=== PATIENT | female | born 1955 | race Caucasian/White ===

== ENCOUNTER → 2017-02-19 | Day surgery (SDC) | payer BC ==
--- NOTE | 2017-02-17 16:04 | MH ---
cc: Antione ALFORD M.D. DATE OF ADMISSION: 02/19/2017 REASON FOR ADMISSION Rotator cuff tear right shoulder, now being admitted for rotator cuff repair. HISTORY OF PRESENT ILLNESS This pleasant 61-year-old female is being admitted today for rotator cuff repair right shoulder due to torn rotator cuff she did 8 months ago. OTHER PAST HISTORY The patient has a history of: 1. Problems with both shoulders. 2. Hypertension. 3. Kidney stones in the past. CURRENT MEDICATIONS 1. Enalapril. 2. Amlodipine. 3. Crestor. 4. Omeprazole. 5. Evista. 6. Voltaren, stopped before surgery. PREVIOUS SURGERIES 1. Laminectomy of the lumbar spine. 2. Cholecystectomy. 3. Appendectomy. 4. Hysterectomy. REVIEW OF SYSTEMS Noncontributory. FAMILY HISTORY Noncontributory. SOCIAL HISTORY She does not smoke or drink. ALLERGIES MORPHINE. PHYSICAL EXAMINATION GENERAL: We find a 61-year-old female, well-developed, well-nourished, alert and oriented x3, complains of pain in the right shoulder. VITAL SIGNS: Blood pressure 122/80, pulse 80 and regular, respirations 18, temperature 98.3, pulse oximetry 95% on room air. HEENT: Eyes PERRLA, EOMI. Ears, nose, mouth clear. NECK: Supple. LUNGS: Clear. HEART: Regular rate. ABDOMEN: Soft. Positive bowel sounds and nontender. EXTREMITIES: Reveals the right shoulder to only have 45 degrees of active flexion and abduction. She is neurovascularly intact to her fingers. IMAGING STUDIES MRI report of right shoulder from [facility] reveals a complete tear of the supraspinatus portion of the rotator cuff. IMPRESSION AT THIS TIME Rotator cuff tear, right shoulder. PLAN Admission for rotator cuff repair right shoulder today. The patient given a prescription for postoperative pain control in the office, understands the use of Hibiclens scrub and Bactroban preoperatively. J. MD BLESSING Nielson/JEFFYL /9:26 AM /4:04 PM
[~2017-02-19] VITALS: Ht 157.5 cm; Wt 77.0 kg
[~2017-02-19] MED LIST: ACETAMINOPHEN 1000 MG/100 ML 100 ML IV ONE; AMLO2.5T PO; BUPIVACAINE HCL PF 0.5% 30 ML VIAL ONE; CHLORHEXIDINE GLUCONATE 2 % 1 PACK (2 CLOTHS) TOPICAL PRN; CHLORHEXIDINE GLUCONATE 4% SOLN 120 ML BTL TOPICAL SCH; ENAL20TA PO; INSULIN HUMAN REGULAR 1,000 UNITS/10 ML VIAL SQ PRN; LACTATED RINGER'S 1000 ML IV PRN; METOPROLOL TARTRATE 25 MG TAB PO PRN; MIDAZOLAM HCL 2 MG/2 ML VIAL ONE; MIDAZOLAM HCL 5 MG/ML VIAL (1 ML) ONE; OMEP20TA93 PO; POVIDONE IODINE 5% (ANTISEPSIS KIT) 4 APPLICATIONS EACH NARE PRN; PROMETHAZINE INJ 25 MG/ML VIAL ONE; RALO60 PO; RESP: ALBUTEROL 2.5 MG/3 ML NEB (PRN) ONE; ROSU5 PO; SODIUM CHLORID 0.9% 500 ML IV PRN; VANCOMYCIN 1000 MG/NS 250 ML (for <70 kg) IV SCH; ceFAZolin 2 GM PREMIX 50 ML IV SCH
--- NOTE | 2017-02-19 12:18 | EKG ---
Date Performed: 02/19/2017 Time Performed: 07:07:52 PTAGE: 61 years EKG: Sinus rhythm INFERIOR MYOCARDIAL INFARCTION Nonspecific ST changes are present Compared to prior tracing no signi ficant change ABNORMAL ECG PREVIOUS TRACING : 09/09/2012 14.53 DOCTOR: Sim Flores Interpretating Date/Time 02/19/2017 12:17:33
[2017-02-19 12:55] VITALS: BP 106/59; PULSE 95; RESP 18; TEMP 98.6; O2SAT 93
--- NOTE | 2017-02-19 22:40 | MP ---
cc: Antione BROWN DATE OF SURGERY 02/19/17 PREOPERATIVE DIAGNOSIS Torn rotator cuff right shoulder. POSTOPERATIVE DIAGNOSIS Torn rotator cuff right shoulder. PROCEDURE PERFORMED Right rotator cuff repair using two 5.5 Parcus anchors and FiberWire and acromioplasty, right shoulder. SURGEON Dr. Yaz Brown CAREER MANAGER , IT ARCHITECTURE CONSULTANT ANESTHESIA General intubation and block PROCEDURE IN DETAIL The patient brought to the operating room where after successful induction of anesthesia, the patient was placed on the operating room table in beach chair position. Right shoulder and arm were prepped and draped usual manner. An anterior incision was then made just lateral to the deltopectoral groove along the lines of the head of the humerus and proximal humerus 3 inches in length, carried down through subcutaneous tissue through a deltoid splitting incision to expose the bursa over the rotator cuff which was removed. The rotator cuff was found to have a large tear through the supraspinatus with retraction. This area was debrided and repaired using two 5.5 Parkus anchors which were screwed into the bone and after punching holes with their punch first. Using the attached FiberWire, the rotator cuff was repaired and extra suture from the remains of the suture was used to supplement the repair. The acromion was found to be impinging the rotator cuff and acromioplasty performed using curved osteotome to remove the undersurface one third of acromion which was then smoothed with a rasp. Full range of motion was then appreciated with no impingement. The wound irrigated copiously with lactated Ringer's solution. Meticulous hemostasis achieved. Deltoid loosely approximated with running 0 Vicryl suture. Subcutaneous tissue approximated using interrupted running 2-0 and 3-0 Monocryl suture. Steri-Strips, sterile dressing and sling and swath. Estimated blood loss was 50 mL. Sponge and suture count correct. No drain utilized. The patient tolerated the procedure well and left the operating room in satisfactory condition. MD BLESSING Ordonez/ /10:19 AM /10:37 PM
== END | disposition home or self-care (01) ==
LOC: PHSDC 06:07
PROVIDERS: ATTEND Surgery
DX: M75.101 Unspecified rotator cuff tear or rupture of right shoulder, not specified as traumatic (principal); I10 Essential (primary) hypertension; Z87.442 Personal history of urinary calculi
CPT/HCPCS: 01630; 23420; 64415; 93005; C1713; J0131; J2250; J2550; J3010; J7120; J7613

== ENCOUNTER 2017-08-24 11:35 | Observation (INO) | payer BC ==
[~2017-08-24] VITALS: Ht 157.5 cm; Wt 89.6 kg
[~2017-08-24 11:35] MED LIST changes: -ACETAMINOPHEN 1000 MG/100 ML 100 ML IV ONE; -BUPIVACAINE HCL PF 0.5% 30 ML VIAL ONE; -CHLORHEXIDINE GLUCONATE 2 % 1 PACK (2 CLOTHS) TOPICAL PRN; -CHLORHEXIDINE GLUCONATE 4% SOLN 120 ML BTL TOPICAL SCH; -INSULIN HUMAN REGULAR 1,000 UNITS/10 ML VIAL SQ PRN; -LACTATED RINGER'S 1000 ML IV PRN; -METOPROLOL TARTRATE 25 MG TAB PO PRN; -MIDAZOLAM HCL 2 MG/2 ML VIAL ONE; -MIDAZOLAM HCL 5 MG/ML VIAL (1 ML) ONE; -POVIDONE IODINE 5% (ANTISEPSIS KIT) 4 APPLICATIONS EACH NARE PRN; -PROMETHAZINE INJ 25 MG/ML VIAL ONE; -RESP: ALBUTEROL 2.5 MG/3 ML NEB (PRN) ONE; -SODIUM CHLORID 0.9% 500 ML IV PRN; -VANCOMYCIN 1000 MG/NS 250 ML (for <70 kg) IV SCH; -ceFAZolin 2 GM PREMIX 50 ML IV SCH
[2017-08-24 11:59] VITALS: BP 132/74; PULSE 90; RESP 16; TEMP 99.1; O2SAT 95
[2017-08-24] MEDS ORDERED: HYDROmorphone HCL PF 2 MG/ML VIAL IV PUSH ONE ×2 (12:15→13:45)
[2017-08-24] MEDS ORDERED: SODIUM CHLOR 0.9% 1000 ML INJ 1,000 ML IV ONE (12:15)
[2017-08-24] MEDS ORDERED: ONDANSETRON HCL 4 MG/2 ML VIAL IV PUSH ONE ×2 (12:15→13:45)
[2017-08-24 12:33] LABS: AUTOMATED NEUTROPHIL # 6.1 TH/MM3 (1.8-7.7); BASOPHIL # 0.1 TH/MM3 (0-0.2); BASOPHIL % 1.8 % (0.0-2.0); EOSINOPHIL # 0.1 TH/MM3 (0-0.4); EOSINOPHIL % 1.3 % (0.0-4.0); HEMATOCRIT 39.9 % (35.0-46.0); HEMOGLOBIN 13.1 GM/DL (11.6-15.3); LYMPHOCYTE # 1.4 TH/MM3 (1.0-4.8); MEAN CELL VOLUME 86.7 FL (80.0-100.0); MEAN CORPUSCULAR HEMOGLOBIN 28.5 PG (27.0-34.0); MEAN CORPUSCULAR HGB CONC 32.9 % (32.0-36.0); MEAN PLATELET VOLUME 7.9 FL (7.0-11.0); MONO % 6.6 % (0.0-8.0); MONOCYTE # 0.5 TH/MM3 (0-0.9); NEUT % 73.3 % (16.0-70.0); PLATELET COUNT 343 TH/MM3 (150-450); RED CELL DISTRIBUTION WIDTH 13.3 % (11.6-17.2); WHITE BLOOD COUNT 8.2 TH/MM3 (4.0-11.0)
[2017-08-24 12:49] LABS: CHLORIDE 109 MEQ/L (98-107); SODIUM (NA) 140 MEQ/L (136-145)
[2017-08-24 12:55] LABS: CALCIUM 9.2 MG/DL (8.5-10.1)
[2017-08-24 12:56] LABS: ALBUMIN 3.8 GM/DL (3.4-5.0); BICARBONATE 24.6 MEQ/L (21.0-32.0); BLOOD UREA NITROGEN 9 MG/DL (7-18); GLUCOSE,RANDOM 84 MG/DL (74-106)
[2017-08-24 12:59] LABS: ALT (GPT) 14 U/L (10-53); AST (GOT) 7 U/L (15-37); CREATININE 0.62 MG/DL (0.50-1.00); GLOMERULAR FILTRATION RATE 98 ML/MIN (>89)
--- NOTE | 2017-08-24 12:59 | PD ---
HPI Chief Complaint: Flank/Kidney Pain Time Seen by Provider: 12:06 Travel History International Travel<30 days: No Contact w/Intl Traveler<30days: No Traveled to known affect area: No History of Present Illness HPI This is a 62-year-old female who presents to the emergency department with a history of a renal abscess with 4 days of left-sided abdominal pain that radiates to her left flank, constant, severe, with no associated fevers or chills. She has had multiple kidney stones in the past and follows with Dr. Lemus. [facility] Past Medical History Blood Disorders: No Heart Rhythm Problems: No Cancer: No Cardiovascular Problems: Yes (HYPERTENSION) High Cholesterol: Yes Chest Pain: No (NOT ON THIS ADMISSION) Congestive Heart Failure: No Diabetes: No Diminished Hearing: No Endocrine: No Gastrointestinal Disorders: Yes (ACID REFLUX) GERD: Yes Glaucoma: No Genitourinary: Yes (UTI) Hepatitis: No Hiatal Hernia: No Herniated Disk: Yes Hypertension: Yes Immune Disorder: No Kidney Stones: Yes Musculoskeletal: Yes Neurologic: No Psychiatric: No Reproductive: No Respiratory: No Immunizations Current: Yes Thyroid Disease: No Triglycerides - High: Yes Ulcer: Yes (PUD) Menopausal: Yes Past Surgical History Abdominal Surgery: Yes (EDUARDO,APPY) AICD: No Appendectomy: Yes Cardiac Surgery: No Cholecystectomy: Yes (1992) Ear Surgery: No Endocrine Surgery: No Eye Surgery: No Genitourinary Surgery: Yes (SEVERAL SURGERIES FOR KIDNEY STONE REMOVALS) Gynecologic Surgery: Yes (HYSTERECTOMY) Hysterectomy: Yes Joint Replacement: No Oral Surgery: No Pacemaker: No Thoracic Surgery: No Other Surgery: Yes (LIPATRISPY L 5 YEARS AGO, KIDNEY STENT 05/2007,RT KIDNEY STENT 2006 & 2003) Social History Alcohol Use: No Tobacco Use: No (QUIT) Substance Use: No Allergies-Medications (Allergen,Severity, Reaction): Coded Allergies: morphine (Unverified Allergy, Severe, nausea vomiting rash, 08/24/17) Reported Meds & Prescriptions Reported Meds & Active Scripts Active Reported Enalapril (Enalapril Maleate) 20 Mg Tab 10 Mg PO BID Evista (Raloxifene HCl) 60 Mg Tab 60 Mg PO DAILY Omeprazole 20 Mg Tab 20 Mg PO DAILY Crestor (Rosuvastatin Calcium) 5 Mg Tab 20 Mg PO DAILY Amlodipine (Amlodipine Besylate) 2.5 Mg Tab 10 Mg PO DAILY Review of Systems Except as stated in HPI: all other systems reviewed are Neg Physical Exam Narrative GENERAL: Uncomfortable appearing SKIN: Focused skin assessment warm and dry. HEAD: Atraumatic. Normocephalic. EYES: Pupils equal and round. No injection or drainage. ENT: Moist mucous membranes NECK: Trachea midline. CARDIOVASCULAR: Regular rate and rhythm. No murmur appreciated. RESPIRATORY: Clear to auscultation. Breath sounds equal bilaterally. GASTROINTESTINAL: Abdomen soft, tender to palpation in the left upper quadrant and left lower quadrants with no rebound or guarding. : Left CVA tenderness MUSCULOSKELETAL: No obvious deformities. NEUROLOGICAL: Awake and alert. No obvious cranial nerve deficits. Moving all extremities. PSYCHIATRIC: Appropriate mood and affect; insight and judgment normal. Data Data Last Documented VS Vital Signs Date Time Temp Pulse Resp B/P (MAP) Pulse Ox O2 Delivery O2 Flow Rate FiO2 08/24/17 11:59 99.1 90 16 132/74 (93) 95 Orders Orders Complete Blood Count With Diff (08/24/17 12:13) Comprehensive Metabolic Panel (08/24/17 12:13) ^ Insert Iv (08/24/17 12:13) Ct Abd/Pel W/O Iv Contrast (08/24/17 ) Urinalysis - C+S If Indicated (08/24/17 12:13) Hydromorphone Pf Inj (Dilaudid Pf Inj) (08/24/17 12:15) Ondansetron Inj (Zofran Inj) (08/24/17 12:15) Sodium Chlor 0.9% 1000 Ml Inj (Ns 1000 M (08/24/17 12:15) Labs Laboratory Tests Test 08/24/17 12:20 White Blood Count 8.2 TH/MM3 Red Blood Count 4.60 MIL/MM3 Hemoglobin 13.1 GM/DL Hematocrit 39.9 % Mean Corpuscular Volume 86.7 FL Mean Corpuscular Hemoglobin 28.5 PG Mean Corpuscular Hemoglobin Concent 32.9 % Red Cell Distribution Width 13.3 % Platelet Count 343 TH/MM3 Mean Platelet Volume 7.9 FL Neutrophils (%) (Auto) 73.3 % Lymphocytes (%) (Auto) 17.0 % Monocytes (%) (Auto) 6.6 % Eosinophils (%) (Auto) 1.3 % Basophils (%) (Auto) 1.8 % Neutrophils # (Auto) 6.1 TH/MM3 Lymphocytes # (Auto) 1.4 TH/MM3 Monocytes # (Auto) 0.5 TH/MM3 Eosinophils # (Auto) 0.1 TH/MM3 Basophils # (Auto) 0.1 TH/MM3 CBC Comment DIFF FINAL Differential Comment Blood Urea Nitrogen 9 MG/DL Creatinine 0.62 MG/DL Random Glucose 84 MG/DL Total Protein 7.6 GM/DL Albumin 3.8 GM/DL Calcium Level 9.2 MG/DL Alkaline Phosphatase 103 U/L Aspartate Amino Transf (AST/SGOT) 7 U/L Alanine Aminotransferase (ALT/SGPT) 14 U/L Total Bilirubin 0.5 MG/DL Sodium Level 140 MEQ/L Potassium Level 3.4 MEQ/L Chloride Level 109 MEQ/L Carbon Dioxide Level 24.6 MEQ/L Anion Gap 6 MEQ/L Estimat Glomerular Filtration Rate 98 ML/MIN MDM Medical Decision Making Medical Screen Exam Complete: Yes Emergency Medical Condition: Yes Medical Record Reviewed: Yes (Patient has been treated at [facility] [place] in the past for renal abscess and nephrolithiasis) Interpretation(s) afebrile, no tachycardia Differential Diagnosis Kidney stone, pyelonephritis, renal abscess, diverticulitis, pancreatitis Narrative Course This is a 62-year-old female who presents to the emergency department with left- sided abdominal pain and flank pain. She has a history of kidney stones in the past. She is placed in a monitor and an IV was established. Labs are reassuring. CT abdomen pelvis demonstrates acute diverticulitis. She is afebrile, nontoxic appearing and I think she is appropriate for a trial of outpatient therapy. She was advised to have a low threshold to return to the emergency department if her symptoms worsen. She will be discharged on oral antibiotic therapy. Diagnosis Primary Impression: Acute diverticulitis Patient Instructions: General Instructions Additional Instructions: Sometimes patients with diverticulitis require admission to the hospital for IV antibiotics. If you develop worsening or severe abdominal pain, persistent fevers, or inability to drink return to the emergency department. Follow a clear liquid diet for 3 days until you notice your symptoms improving, then slowly advance your diet. Complete your course of antibiotics. Follow up with your primary care physician as soon as possible to ensure you are improving. Med/Other Pt SpecificInfo: Prescription(s) given Scripts Ondansetron Odt (Zofran Odt) 4 Mg Tab 4 MG SL Q6HR Y for Nausea/Vomiting, #15 TAB 0 Refills Prov: Micheline Gant MD 08/24/17 Hydrocodone-Acetaminophen (Hydrocodone-Acetaminophen) 5-325 mg Tab 1 TAB PO Q4H Y for PAIN, #12 TAB 0 Refills Prov: Micheline Gant MD 08/24/17 Ciprofloxacin (Ciprofloxacin) 500 Mg Tab 500 MG PO BID for Infection for 10 Days, #20 TAB 0 Refills Prov: Micheline Gant MD 08/24/17 Metronidazole (Flagyl) 500 Mg Tab 500 MG PO TID for Infection, #30 TAB 0 Refills Prov: Micheline Gant MD 08/24/17 Disposition: 01 DISCHARGE HOME Condition: Stable Micheline Gant MD August 24, 2017 12:59
[2017-08-24 13:00] LABS: TOTAL BILIRUBIN ADULT 0.5 MG/DL (0.2-1.0); TOTAL PROTEIN 7.6 GM/DL (6.4-8.2)
--- NOTE | 2017-08-24 13:00 | RADRPT ---
EXAM DATE/TIME: 08/24/2017 12:38 [place] COMPARISON: CT ABDOMEN & PELVIS W/O CONTRAST, June 16, 2013, 13:16. INDICATIONS : Left flank pain. ORAL CONTRAST: No oral contrast ingested. RADIATION DOSE: 24.65 CTDIvol (mGy) MEDICAL HISTORY : Hypertension. Renal calculi. SURGICAL HISTORY : Cholecystectomy. Appendectomy.Hysterectomy.Lithotripsy. renal stents. ENCOUNTER: Initial ACUITY: 2 days PAIN SCALE: 6/10 LOCATION: Left flank TECHNIQUE: Volumetric scanning of the abdomen and pelvis was performed. Using automated exposure control and ad justment of the mA and/or kV according to patient size, radiation dose was kept as low as reasonably achievable to obtain optimal diagnostic quality images. DICOM format image data is available electro nically for review and comparison. The lack of IV contrast limits the diagnosis of certain organ path ology. FINDINGS: LOWER LUNGS: The visualized lower lungs are clear. LIVER: Homogeneous density without lesion. There is no dilation of the biliary tree. No gallbladder, surgi jesús removed. No significant changes.. SPLEEN: Normal size without lesion. PANCREAS: Within normal limits. KIDNEYS: Normal in size and shape. There is no mass or hydronephrosis. Multiple small non-obstructing bilater al renal stones are again demonstrated. This has not significantly changed compared to the prior exam . The previously noted left-sided double-J stent is no longer in place. The ureters are nondilated. ADRENAL GLANDS: Within normal limits. VASCULAR: There is no aortic aneurysm. BOWEL/MESENTERY: The stomach, small bowel, and colon demonstrate no acute abnormality.. There is scattered diverticulo sis of the descending and sigmoid colon. There is nonspecific inflammatory changes in the mesenteric fat adjacent to the distal descending colon suggestive of diverticulitis. No loculated fluid collecti ons are seen. No free air is seen. ABDOMINAL WALL: Within normal limits. RETROPERITONEUM: There is no lymphadenopathy. BLADDER: No wall thickening or mass. REPRODUCTIVE: Within normal limits. INGUINAL: There is no lymphadenopathy or hernia. MUSCULOSKELETAL: Within normal limits for patient age. CONCLUSION: 1. There is diverticulitis involving the distal descending colon with inflammatory changes in the mes enteric fat. No free fluid or loculated fluid collections are seen to suggest an abscess. 2. Multiple nonobstructing subcentimeter bilateral renal calculi. No significant change compared to 2 014. Lester Burnham MD on August 24, 2017 at 12:53 Board Certified Radiologist. This report was verified electronically.
[2017-08-24 13:02] LABS: ALKALINE PHOSPHATASE 103 U/L (45-117)
[2017-08-24] MEDS ORDERED: CIPR500T2 PO (13:07)
[2017-08-24] MEDS ORDERED: HYDR-3516 PO (13:07)
[2017-08-24] MEDS ORDERED: METR-1 PO (13:07)
[2017-08-24] MEDS ORDERED: ZOFR4TAB3 SL (13:07)
[2017-08-24 13:40] VITALS: BP 123/56; PULSE 87; RESP 20; O2SAT 96
[2017-08-24 13:45] LABS: BILIRUBIN, URINE ND (NEG); BLOOD, URINE ND (NEG); GLUCOSE,URINE ND mg/dL (NEG); KETONE, URINE ND mg/dL (NEG); NITRITE,URINE ND (NEG); PH, URINE ND (5.0-8.5)
[2017-08-24] MEDS ORDERED: metroNIDAZOLE 500 MG INJ 100 ML IV ONE (13:45)
[2017-08-24] MEDS ORDERED: CIPROFLOXACIN 400 MG PREMIX 200 ML IV ONE (13:45)
[2017-08-24 13:47] LABS: BACTERIA, URINE ND /hpf; RBC, URINE ND /hpf (0-3); WBC, URINE ND /hpf (0-5)
[2017-08-24 14:13] LABS: AMORPHOUS SEDIMENT, URINE ND; SQUAMOUS EPITHELIAL CELL URINE ND /hpf (0-5); URINE COLOR ND (YELLW/STRAW)
[2017-08-24] MEDS: SODIUM CHLOR 0.9% 1000 ML INJ 1,000 ML IV SCH ×2 (14:21→23:51)
[2017-08-24] MEDS ORDERED: SODIUM CHLORIDE 0.9% FLUSH 10 ML FLUSH IV FLUSH PRN (14:30)
[2017-08-24] MEDS ORDERED: NALOXONE HCL 0.4 MG/ML AMP IV PUSH PRN (14:30)
[2017-08-24] MEDS ORDERED: traMADol HCL 50 MG TAB PO PRN (14:30)
[2017-08-24] MEDS ORDERED: ACETAMINOPHEN 325 MG TAB PO PRN ×2 (14:30)
[2017-08-24] MEDS ORDERED: POTASSIUM CHLOR 20 MEQ PREMIX 100 ML IV ONE (15:00)
[2017-08-24 16:38] VITALS: BP 113/62; PULSE 73; RESP 17; TEMP 97.1; O2SAT 94
--- NOTE | 2017-08-24 16:54 | HHI.HP ---
[facility] Jamil Gillespie MD Admission Diagnosis acute diverticulitis Diagnoses: Chief Complaint: Abdominal pain Travel History International Travel<30 Days: No Contact w/Intl Traveler <30 Da: No Traveled to Known Affected Are: No History of Present Illness The patient is a 62-year-old female with past medical history of kidney stones and diverticulitis who is presenting to the hospital with abdominal pain. The patient says that she has been having a stomachache over the past 5 days but recently the pain became severe. She stated that the pain seemed to be constant and located near and around her left waist. She says the pain has been moving around to her upper abdomen. She has had accompanying nausea. She has not been vomiting. She states her bowel movements have been normal. She says today she has not been urinating as much as she normally does but she says she has not been eating that much or drinking. She says her last colonoscopy was about 7 years ago and it was normal. She said the last kidney stone she had was about 4 years ago. She is going to try a clear liquid diet. Review of Systems Except as stated in HPI: all other systems reviewed are Neg Past Family Social History Past Medical History Kidney stones s/p multiple procedures Diverticulitis HTN HLP GERD Past Surgical History Cholecystectomy Appendectomy Back surgery Hysterectomy Allergies: Coded Allergies: morphine (Unverified Allergy, Severe, nausea vomiting rash, 08/24/17) Family History COPD Blood clots Social History The pt smokes about one pack every four months. She does not drink or use illicit substances. Physical Exam Vital Signs Vital Signs Date Time Temp Pulse Resp B/P (MAP) Pulse Ox O2 Delivery O2 Flow Rate FiO2 08/24/17 14:46 08/24/17 13:40 87 20 123/56 (78) 96 Room Air 08/24/17 11:59 99.1 90 16 132/74 (93) 95 Physical Exam GENERAL: No distress. SKIN: Focused skin assessment warm and dry. HEAD: Atraumatic. Normocephalic. EYES: Pupils equal and round. No injection or drainage. ENT: Moist mucous membranes NECK: Trachea midline. CARDIOVASCULAR: Regular rate and rhythm. No murmur appreciated. RESPIRATORY: Clear to auscultation. Breath sounds equal bilaterally. GASTROINTESTINAL: Abdomen soft, tender to palpation in the left upper quadrant and left lower quadrants with no rebound or guarding. MUSCULOSKELETAL: No obvious deformities. No edema. NEUROLOGICAL: Awake and alert. No obvious cranial nerve deficits. Moving all extremities. PSYCHIATRIC: Appropriate mood and affect; insight and judgment normal. Laboratory Laboratory Tests Test 08/24/17 12:20 White Blood Count 8.2 Red Blood Count 4.60 Hemoglobin 13.1 Hematocrit 39.9 Mean Corpuscular Volume 86.7 Mean Corpuscular Hemoglobin 28.5 Mean Corpuscular Hemoglobin Concent 32.9 Red Cell Distribution Width 13.3 Platelet Count 343 Mean Platelet Volume 7.9 Neutrophils (%) (Auto) 73.3 Lymphocytes (%) (Auto) 17.0 Monocytes (%) (Auto) 6.6 Eosinophils (%) (Auto) 1.3 Basophils (%) (Auto) 1.8 Neutrophils # (Auto) 6.1 Lymphocytes # (Auto) 1.4 Monocytes # (Auto) 0.5 Eosinophils # (Auto) 0.1 Basophils # (Auto) 0.1 CBC Comment DIFF FINAL Differential Comment Urine Collection Type Urine Color Urine Turbidity Urine pH Urine Specific [place] Urine Protein Urine Glucose (UA) Urine Ketones Urine Occult Blood Urine Nitrite Urine Reducing Substances Urine Bilirubin Urine RBC Urine WBC Urine Squamous Epithelial Cells Urine Amorphous Sediment Urine Bacteria Microscopic Urinalysis Comment Urine Collection Time Blood Urea Nitrogen 9 Creatinine 0.62 Random Glucose 84 Total Protein 7.6 Albumin 3.8 Calcium Level 9.2 Alkaline Phosphatase 103 Aspartate Amino Transf (AST/SGOT) 7 Alanine Aminotransferase (ALT/SGPT) 14 Total Bilirubin 0.5 Sodium Level 140 Potassium Level 3.4 Chloride Level 109 Carbon Dioxide Level 24.6 Anion Gap 6 Estimat Glomerular Filtration Rate 98 Result Diagram: 08/24/17 1220 08/24/17 1220 Imaging Last Impressions Abdomen/Pelvis CT 08/24/17 0000 Signed Impressions: Service Date/Time: Thursday, August 24, 2017 12:38 - CONCLUSION: 1. There is diverticulitis involving the distal descending colon with inflammatory changes in the mesenteric fat. No free fluid or loculated fluid collections are seen to suggest an abscess. 2. Multiple nonobstructing subcentimeter bilateral renal calculi. No significant change compared to 2014. Lester Burnham MD Caprini VTE Risk Assessment Caprini VTE Risk Assessment: Mod/High Risk (score >= 2) Caprini Risk Assessment Model Point Value = 1 Point Value = 2 Point Value = 3 Point Value = 5 Age 41-60 Minor surgery BMI > 25 kg/m2 Swollen legs Varicose veins or History of unexplained or recurrent spontaneous Oral contraceptives or hormone replacement Sepsis (< 1 month) Serious lung disease, including pneumonia (< 1 month) Abnormal pulmonary function Acute myocardial infarction Congestive heart failure (< 1 month) History of inflammatory bowel disease Medical patient at bed rest Age 61-74 Arthroscopic surgery Major open surgery (> 45 min) Laparoscopic surgery (> 45 min) Malignancy Confined to bed (> 72 hours) Immobilizing plaster cast Central venous access Age >= 75 History of VTE Family history of VTE Factor V Leiden Prothrombin [id number] Lupus anticoagulant Anticardiolipin antibodies Elevated serum homocysteine Heparin-induced thrombocytopenia Other congenital or acquired thrombophilia Stroke (< 1 month) Elective arthroplasty Hip, pelvis, or leg fracture Acute spinal cord injury (< 1 month) Prophylaxis Regimen Total Risk Factor Score Risk Level Prophylaxis Regimen 0-1 Low Early ambulation 2 Moderate Order ONE of the following: *Sequential Compression Device (SCD) *Heparin 5000 units SQ BID 3-4 Higher Order ONE of the following medications: *Heparin 5000 units SQ TID *Enoxaparin/Lovenox 40 mg SQ daily (WT < 150 kg, CrCl > 30 mL/min) *Enoxaparin/Lovenox 30 mg SQ daily (WT < 150 kg, CrCl > 10-29 mL/min) *Enoxaparin/Lovenox 30 mg SQ BID (WT < 150 kg, CrCl > 30 mL/min) AND/OR *Sequential Compression Device (SCD) 5 or more Highest Order ONE of the following medications: *Heparin 5000 units SQ TID (Preferred with Epidurals) *Enoxaparin/Lovenox 40 mg SQ daily (WT < 150 kg, CrCl > 30 mL/min) *Enoxaparin/Lovenox 30 mg SQ daily (WT < 150 kg, CrCl > 10-29 mL/min) *Enoxaparin/Lovenox 30 mg SQ BID (WT < 150 kg, CrCl > 30 mL/min) AND *Sequential Compression Device (SCD) Assessment and Plan Assessment and Plan Acute diverticulitis The pt states she has had diverticulitis before. She presented with abdominal pain and nausea. CT of the abdomen shows: There is diverticulitis involving the distal descending colon with inflammatory changes in the mesenteric fat; No free fluid or loculated fluid collections are seen to suggest an abscess; Multiple nonobstructing subcentimeter bilateral renal calculi. - continue IV Cipro and Flagyl. - clear liquid diet. - pain control and antiemetics as needed. - encourage ambulation. HTN Blood pressure is well controlled at this time. - resume home regimen. Hypokalemia S/t decreased PO intake. - IV KCl x 1. - monitor BMP. PPx: SCDs Discussed Condition With Pt, nurse, Raul Tucker DO August 24, 2017 16:54
[2017-08-24] MEDS: traMADol HCL 50 MG TAB PO PRN (17:32)
[2017-08-24] MEDS: PANTOPRAZOLE SOD 20 MG DELAYED RELEASE TAB PO SCH (17:36)
[2017-08-24 20:00] VITALS: BP 116/63; PULSE 64; RESP 14; TEMP 96; O2SAT 95
[2017-08-24] MEDS: SODIUM CHLORIDE 0.9% FLUSH 10 ML FLUSH IV FLUSH SCH (21:00)
[2017-08-24] MEDS: ONDANSETRON HCL 4 MG/2 ML VIAL IVP PRN (21:38)
[2017-08-24] MEDS: ENALAPRIL MALEATE 10 MG TAB PO SCH (21:38)
[2017-08-24] MEDS: DOCUSATE SODIUM 50 MG/SENNA 8.6 MG TAB PO SCH (21:38)
[2017-08-24] MEDS: metroNIDAZOLE 500 MG INJ 100 ML IV SCH (23:51)
[2017-08-25] VITALS: BP 107/66; PULSE 67; RESP 15; TEMP 97.9; O2SAT 93
[2017-08-25] MEDS: CIPROFLOXACIN 400 MG PREMIX 200 ML IV SCH ×2 (01:40→14:58)
[2017-08-25 06:49] LABS: AUTOMATED NEUTROPHIL # 3.4 TH/MM3 (1.8-7.7); EOSINOPHIL # 0.1 TH/MM3 (0-0.4); EOSINOPHIL % 1.9 % (0.0-4.0); HEMATOCRIT 35.2 % (35.0-46.0); HEMOGLOBIN 11.3 GM/DL (11.6-15.3); LYMPH % 22.3 % (9.0-44.0); LYMPHOCYTE # 1.1 TH/MM3 (1.0-4.8); MEAN CELL VOLUME 86.3 FL (80.0-100.0); MEAN CORPUSCULAR HEMOGLOBIN 27.6 PG (27.0-34.0); MEAN PLATELET VOLUME 8.5 FL (7.0-11.0); MONO % 5.7 % (0.0-8.0); MONOCYTE # 0.3 TH/MM3 (0-0.9); NEUT % 69.1 % (16.0-70.0); PLATELET COUNT 293 TH/MM3 (150-450); RED BLOOD COUNT 4.07 MIL/MM3 (4.00-5.30); RED CELL DISTRIBUTION WIDTH 13.4 % (11.6-17.2); WHITE BLOOD COUNT 4.9 TH/MM3 (4.0-11.0)
[2017-08-25 07:02] LABS: CHLORIDE 113 MEQ/L (98-107); SODIUM (NA) 143 MEQ/L (136-145)
[2017-08-25 07:09] LABS: CALCIUM 8.5 MG/DL (8.5-10.1)
[2017-08-25 07:20] LABS: ALBUMIN 3.1 GM/DL (3.4-5.0); ALKALINE PHOSPHATASE 145 U/L (45-117); ALT (GPT) 62 U/L (10-53); AST (GOT) 74 U/L (15-37); BICARBONATE 23.8 MEQ/L (21.0-32.0); BLOOD UREA NITROGEN 5 MG/DL (7-18); CREATININE 0.46 MG/DL (0.50-1.00); GLOMERULAR FILTRATION RATE 139 ML/MIN (>89); GLUCOSE,RANDOM 93 MG/DL (74-106); TOTAL BILIRUBIN ADULT 0.6 MG/DL (0.2-1.0); TOTAL PROTEIN 6.3 GM/DL (6.4-8.2)
[2017-08-25 07:47] VITALS: BP 137/67; PULSE 67; RESP 18; TEMP 96.9; O2SAT 95
[2017-08-25] MEDS: ENALAPRIL MALEATE 10 MG TAB PO SCH ×2 (08:25→20:54)
[2017-08-25] MEDS: PANTOPRAZOLE SOD 20 MG DELAYED RELEASE TAB PO SCH (08:25)
[2017-08-25] MEDS: DOCUSATE SODIUM 50 MG/SENNA 8.6 MG TAB PO SCH ×2 (08:26→20:55)
[2017-08-25] MEDS: ATORVASTATIN 40 MG TAB PO SCH (08:26)
[2017-08-25] MEDS: SODIUM CHLORIDE 0.9% FLUSH 10 ML FLUSH IV FLUSH SCH ×2 (08:26→20:54)
[2017-08-25] MEDS: metroNIDAZOLE 500 MG INJ 100 ML IV SCH ×3 (08:26→23:06)
[2017-08-25] MEDS: SODIUM CHLOR 0.9% 1000 ML INJ 1,000 ML IV SCH ×2 (08:27→20:21)
[2017-08-25] MEDS: RALOXIFENE HCL 60 MG TAB PO SCH (09:00)
[2017-08-25] MEDS: POTASSIUM CHLOR 20 MEQ PREMIX 100 ML IV SCH ×2 (09:52→12:33)
[2017-08-25] MEDS: ONDANSETRON HCL 4 MG/2 ML VIAL IVP PRN (09:53)
[2017-08-25] MEDS ORDERED: PNEUMOCOCCAL POLYVALENT INJ 25 MCG/0.5 ML SYR IM ONE (10:00)
[2017-08-25 12:00] VITALS: BP 119/55; PULSE 73; RESP 18; TEMP 97.2; O2SAT 95
[2017-08-25 16:00] VITALS: BP 105/77; PULSE 69; RESP 18; TEMP 97.8; O2SAT 95
--- NOTE | 2017-08-25 16:45 | HHI.PR ---
Subjective Remarks The patient was feeling better today. She said she had a little abdominal pain but overall was better. She was tolerating her clear liquid diet but it sometimes made her a little nauseous. She was willing to try a soft food diet. She has been having bowel movements. Discussed with nursing. Objective Vitals Vital Signs Date Time Temp Pulse Resp B/P (MAP) Pulse Ox O2 Delivery O2 Flow Rate FiO2 08/25/17 16:00 97.8 69 18 105/77 (86) 95 08/25/17 12:00 97.2 73 18 119/55 (76) 95 08/25/17 07:47 96.9 67 18 137/67 (90) 95 08/25/17 00:00 97.9 67 15 107/66 (80) 93 08/24/17 20:00 96.0 64 14 116/63 (80) 95 08/24/17 18:41 18 I/O 08/24/17 08/24/17 08/24/17 08/25/17 08/25/17 08/25/17 07:00 15:00 23:00 07:00 15:00 23:00 Intake Total 360 ml 120 ml Balance 360 ml 120 ml Intake Oral 360 ml 120 ml # Voids 3 Result Diagram: 08/25/17 0535 08/25/17 0535 Imaging Last Impressions Abdomen/Pelvis CT 08/24/17 0000 Signed Impressions: Service Date/Time: Thursday, August 24, 2017 12:38 - CONCLUSION: 1. There is diverticulitis involving the distal descending colon with inflammatory changes in the mesenteric fat. No free fluid or loculated fluid collections are seen to suggest an abscess. 2. Multiple nonobstructing subcentimeter bilateral renal calculi. No significant change compared to 2013. Lester Burnham MD Objective Remarks GENERAL: No distress. SKIN: Focused skin assessment warm and dry. HEAD: Atraumatic. Normocephalic. EYES: Pupils equal and round. No injection or drainage. ENT: Moist mucous membranes NECK: Trachea midline. CARDIOVASCULAR: Regular rate and rhythm. No murmur appreciated. RESPIRATORY: Clear to auscultation. Breath sounds equal bilaterally. GASTROINTESTINAL: Abdomen soft, nontender to palpation with no rebound or guarding. MUSCULOSKELETAL: No obvious deformities. No edema. NEUROLOGICAL: Awake and alert. No obvious cranial nerve deficits. Moving all extremities. PSYCHIATRIC: Appropriate mood and affect; insight and judgment normal. A/P Assessment and Plan Acute diverticulitis The pt states she has had diverticulitis before. She presented with abdominal pain and nausea. CT of the abdomen shows: There is diverticulitis involving the distal descending colon with inflammatory changes in the mesenteric fat; No free fluid or loculated fluid collections are seen to suggest an abscess; Multiple nonobstructing subcentimeter bilateral renal calculi. - continue IV Cipro and Flagyl. Change to p.o. at the time of discharge. - Advance to soft diet. - pain control and antiemetics as needed. - encourage ambulation. HTN Blood pressure is well controlled at this time. - resume home regimen. Hypokalemia S/t decreased PO intake. - IV KCl. - monitor BMP. Elevated LFTs Unsure of etiology. Abdominal pain is improved. - Repeat CMP in the morning. PPx: SCDs Discharge Planning Hopefully discharge home in the morning Raul Johnson DO August 25, 2017 16:45
[2017-08-25 20:00] VITALS: BP 118/64; PULSE 66; RESP 20; TEMP 96.8; O2SAT 94
[2017-08-25] MEDS: traMADol HCL 50 MG TAB PO PRN (20:54)
[2017-08-26] VITALS: BP 109/63; PULSE 69; RESP 18; TEMP 96.5; O2SAT 94
[2017-08-26] MEDS: CIPROFLOXACIN 400 MG PREMIX 200 ML IV SCH (02:28)
[2017-08-26] MEDS: SODIUM CHLOR 0.9% 1000 ML INJ 1,000 ML IV SCH (02:29)
[2017-08-26] MEDS: traMADol HCL 50 MG TAB PO PRN (03:55)
[2017-08-26 06:57] LABS: CHLORIDE 112 MEQ/L (98-107); SODIUM (NA) 143 MEQ/L (136-145)
[2017-08-26 07:01] LABS: CALCIUM 8.8 MG/DL (8.5-10.1)
[2017-08-26 07:02] LABS: ALBUMIN 3.1 GM/DL (3.4-5.0); BICARBONATE 25.2 MEQ/L (21.0-32.0); BLOOD UREA NITROGEN 6 MG/DL (7-18); GLUCOSE,RANDOM 87 MG/DL (74-106)
[2017-08-26 07:05] LABS: ALT (GPT) 44 U/L (10-53); AST (GOT) 26 U/L (15-37); CREATININE 0.47 MG/DL (0.50-1.00); GLOMERULAR FILTRATION RATE 135 ML/MIN (>89)
[2017-08-26 07:06] LABS: TOTAL BILIRUBIN ADULT 0.4 MG/DL (0.2-1.0); TOTAL PROTEIN 6.5 GM/DL (6.4-8.2)
[2017-08-26 07:08] LABS: ALKALINE PHOSPHATASE 130 U/L (45-117)
[2017-08-26] MEDS: metroNIDAZOLE 500 MG INJ 100 ML IV SCH (08:00)
[2017-08-26 08:29] VITALS: BP 97/61; PULSE 63; RESP 17; TEMP 98.6; O2SAT 93
[2017-08-26] MEDS: SODIUM CHLORIDE 0.9% FLUSH 10 ML FLUSH IV FLUSH SCH (09:00)
[2017-08-26] MEDS: DOCUSATE SODIUM 50 MG/SENNA 8.6 MG TAB PO SCH (09:00)
[2017-08-26] MEDS: PANTOPRAZOLE SOD 20 MG DELAYED RELEASE TAB PO SCH (09:11)
[2017-08-26] MEDS: ENALAPRIL MALEATE 10 MG TAB PO SCH (09:12)
[2017-08-26] MEDS: RALOXIFENE HCL 60 MG TAB PO SCH (09:12)
[2017-08-26] MEDS: ATORVASTATIN 40 MG TAB PO SCH (09:13)
[2017-08-26] MEDS ORDERED: CIPR500T2 PO (09:19)
[2017-08-26] MEDS ORDERED: METR-1 PO (09:19)
[2017-08-26] MEDS ORDERED: TRAM50 PO (09:19)
--- NOTE | 2017-08-26 09:19 | HHI.DCPOC ---
Discharge Care Plan Diagnosis: (1) Acute diverticulitis Goals to Promote Your Health * To prevent worsening of your condition and complications * To maintain your health at the optimal level Directions to Meet Your Goals Take your medications as prescribed Follow your dietary instruction Follow activity as directed Keep your appointments as scheduled Take your immunizations and boosters as scheduled If your symptoms worsen call your PCP, if no PCP go to Urgent Care Center or Emergency Room Smoking is Dangerous to Your Health. Avoid second hand smoke Call the 24-hour hour crisis hotline for domestic abuse at Raul Johnson DO August 26, 2017 09:19
--- NOTE | 2017-08-26 09:25 | HHI.PR ---
Subjective Remarks The patient was feeling better. She said she had 2 bowel movements. She was tolerating a diet. She wanted to go home. She had questions about follow-up. Objective Vitals Vital Signs Date Time Temp Pulse Resp B/P (MAP) Pulse Ox O2 Delivery O2 Flow Rate FiO2 08/26/17 08:29 98.6 63 17 97/61 (73) 93 08/26/17 00:00 96.5 69 18 109/63 (78) 94 08/25/17 23:01 18 08/25/17 20:00 96.8 66 20 118/64 (82) 94 08/25/17 16:00 97.8 69 18 105/77 (86) 95 08/25/17 12:00 97.2 73 18 119/55 (76) 95 I/O 08/25/17 08/25/17 08/25/17 08/26/17 08/26/17 08/26/17 07:00 15:00 23:00 07:00 15:00 23:00 Intake Total 360 ml 120 ml 2499 ml 790 ml Output Total 580 ml Balance 360 ml 120 ml 1919 ml 790 ml Intake Oral 360 ml 120 ml 800 ml 240 ml IV Total 1699 ml 550 ml Output Urine Total 580 ml # Voids 3 3 # Bowel Movements 0 Result Diagram: 08/25/17 0535 08/26/17 0540 Imaging Last Impressions Abdomen/Pelvis CT 08/24/17 0000 Signed Impressions: Service Date/Time: Thursday, August 24, 2017 12:38 - CONCLUSION: 1. There is diverticulitis involving the distal descending colon with inflammatory changes in the mesenteric fat. No free fluid or loculated fluid collections are seen to suggest an abscess. 2. Multiple nonobstructing subcentimeter bilateral renal calculi. No significant change compared to 2013. Lester Burnham MD Objective Remarks GENERAL: No distress. SKIN: Focused skin assessment warm and dry. HEAD: Atraumatic. Normocephalic. EYES: Pupils equal and round. No injection or drainage. ENT: Moist mucous membranes NECK: Trachea midline. CARDIOVASCULAR: Regular rate and rhythm. No murmur appreciated. RESPIRATORY: Clear to auscultation. Breath sounds equal bilaterally. GASTROINTESTINAL: Abdomen soft, nontender to palpation with no rebound or guarding. MUSCULOSKELETAL: No obvious deformities. No edema. NEUROLOGICAL: Awake and alert. No obvious cranial nerve deficits. Moving all extremities. PSYCHIATRIC: Appropriate mood and affect; insight and judgment normal. A/P Assessment and Plan Acute diverticulitis The pt states she has had diverticulitis before. She presented with abdominal pain and nausea. CT of the abdomen shows: There is diverticulitis involving the distal descending colon with inflammatory changes in the mesenteric fat; No free fluid or loculated fluid collections are seen to suggest an abscess; Multiple nonobstructing subcentimeter bilateral renal calculi. - change IV Cipro and Flagyl to PO. - Advance to regular diet. - pain control and antiemetics as needed. - encourage ambulation. HTN Blood pressure is well controlled at this time. - resume home regimen. Hypokalemia S/t decreased PO intake. S/p IV KCl. - monitor BMP. Resolved. Elevated LFTs Unsure of etiology. Abdominal pain is improved. - Repeat CMP in the morning. Resolved. PPx: SCDs Discharge Planning D/c home Raul Johnson DO August 26, 2017 09:25
== END 2017-08-26 09:52 | disposition home or self-care (01) ==
LOC: PHED 11:35 → PHEDA 13:32 → PH3A 14:55
PROVIDERS: ADMIT Hospitalist; ATTEND Hospitalist
DX: K57.32 Diverticulitis of large intestine without perforation or abscess without bleeding (principal); N20.0 Calculus of kidney; R79.89 Other specified abnormal findings of blood chemistry; I10 Essential (primary) hypertension; E87.6 Hypokalemia; E78.5 Hyperlipidemia, unspecified; K21.9 Gastro-esophageal reflux disease without esophagitis; Z23 Encounter for immunization
CPT/HCPCS: 74176; 80053; 85025; 90732; 96361; 96365; 96366; 96367; 96368; 96372; 96375; 96376; 99285; G0378; J0744; J1170; J2405; J3480; J7030; 81001